=== PATIENT | female | born 2000 | race Caucasian/White ===

== ENCOUNTER 2021-02-10 11:41 | Emergency (ER) | payer SELFPAY ==
[~2021-02-10] VITALS: Ht 162.6 cm; Wt 72.7 kg
[2021-02-10 11:43] VITALS: BP 117/75
== END 2021-02-10 12:31 | disposition left against medical advice (07) ==
LOC: ED 11:41
DX: S43.004A Unspecified dislocation of right shoulder joint, initial encounter (principal); X58.XXXA Exposure to other specified factors, initial encounter; Y93.67 Activity, basketball